=== PATIENT | female | born 2000 | race African-American/Black ===

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

== ENCOUNTER 2021-03-02 15:56 | Emergency (ER) | payer MEDICAID ==
[~2021-03-02] VITALS: Ht 157.5 cm; Wt 61.0 kg
[2021-03-02] MEDS ORDERED: IBUP-2029 MT (18:28)
[2021-03-02] MEDS ORDERED: ACET650T37 MT (18:28)
[2021-03-02] MEDS ORDERED: AMOX-494 MT (18:28)
[2021-03-02 18:46] VITALS: BP 112/49
== END 2021-03-02 18:49 | disposition home or self-care (01) ==
LOC: ER 15:56
DX: J02.9 Acute pharyngitis, unspecified (principal); F12.10 Cannabis abuse, uncomplicated
CPT/HCPCS: 87070; 87430; 99283

== ENCOUNTER 2023-09-16 23:34 | Emergency (ER) | payer MEDICAID ==
[~2023-09-16] VITALS: Ht 157.5 cm; Wt 57.0 kg
[~2023-09-16 23:34] MED LIST: ACET-3163 MT; AMOX-494 MT; IBUP-2029 MT
[2023-09-16 23:46] VITALS: O2SAT 99
[2023-09-17 00:51] LABS: EOSINOPHILS % 1.4 % (0.0-5.0); HEMATOCRIT. 37.4 % (36.0-48.0); HEMOGLOBIN. 12.4 g/dL (12.0-16.0); LYMPHOCYTES % 38.9 % (20.0-50.0); MEAN CORPUSCULAR HEMOGLOBIN 29.9 pg (28.0-32.0); MEAN CORPUSCULAR HGB CONC 33.3 g/dL (31.0-37.0); MEAN CORPUSCULAR VOLUME 89.7 fL (81.0-99.0); MEAN PLATELET VOLUME 7.8 fl (7.4-10.4); MONOCYTES % 10.1 % (2.0-8.0); NEUTROPHILS % 48.6 % (40.0-76.0); PLATELET 264 x1000/uL (130-400); RED BLOOD CELL COUNT 4.16 mill/uL (4.2-5.4); RED CELL DISTRIBUTION WIDTH 13.9 % (11.6-14.6); WHITE BLOOD COUNT 7.1 x1000/uL (4.5-11.0)
[2023-09-17 00:57] LABS: CHLORIDE 108 mEq/L (98-107); POTASSIUM 3.5 mEq/L (3.5-5.1); SODIUM 139 mEq/L (136-145)
[2023-09-17 00:58] LABS: CALCIUM 9.3 mg/dL (8.7-10.4); CARBON DIOXIDE 25 mEq/L (21-32)
[2023-09-17 01:03] LABS: CREATININE 0.8 mg/dL (0.6-1.0); GLUCOSE 102 mg/dL (70-105); UREA NITROGEN BLOOD 16 mg/dL (9-23)
[2023-09-17 01:05] LABS: ALANINE AMINOTRANSFERASE 12 IU/L (10-49); ALBUMIN 4.6 g/dL (3.2-4.8); ASPARTATE AMINOTRANSFERASE 17 IU/L (<34); BILIRUBIN TOTAL 0.2 mg/dL (0.1-1.0); PROTEIN TOTAL 7.1 g/dL (6.0-8.3)
[2023-09-17 01:25] LABS: BILIRUBIN DIRECT < 0.1 mg/dL (<=3.0)
[2023-09-17 01:30] LABS: HCG SCREEN NEGATIVE
[2023-09-17 01:37] LABS: INR 0.9; PROTHROMBIN TIME 10.1 sec (9.6-11.0)
[2023-09-17] MEDS ORDERED: ONDA4TAB50 MT (01:40)
[2023-09-17] MEDS ORDERED: ACET-2708 MT (01:40)
[2023-09-17 01:58] VITALS: BP 104/59; PULSE 68; RESP 18; TEMP 98.6
== END 2023-09-17 02:02 | disposition home or self-care (01) ==
LOC: ER 23:34
DX: K62.5 Hemorrhage of anus and rectum (principal); F12.10 Cannabis abuse, uncomplicated; Z79.899 Other long term (current) drug therapy
CPT/HCPCS: 36415; 99283; 80076; 80048; 84703; 83690; 85025; 85610; Z7610 ×6

== ENCOUNTER 2024-02-01 20:59 | Emergency (ER) | payer MEDICAID ==
[~2024-02-01] VITALS: Ht 160 cm; Wt 52.0 kg
[~2024-02-01 20:59] MED LIST changes: +ACET-2708 MT; +ONDA4TAB50 MT
[2024-02-01 21:07] VITALS: O2SAT 98
[2024-02-01 21:35] LABS: CLARITY URINE CLOUDY (CLEAR); COLOR URINE YELLOW (YELLOW); GLUCOSE URINE NEGATIVE (NEGATIVE); KETONES URINE TRACE (NEGATIVE); LEUKOCYTE ESTERASE URINE NEGATIVE (NEGATIVE); NITRITE URINE NEGATIVE (NEGATIVE); OCCULT BLOOD URINE 3+ (NEGATIVE); PH URINE 6.5 (4.5-8.0); PROTEIN URINE TRACE (NEGATIVE); SPECIFIC GRAVITY URINE 1.023 (1.005-1.030)
[2024-02-01 21:44] LABS: BACTERIA URINE 1+; SQUAMOUS EPITHELIAL CELL URINE 2+ /lpf (RARE/1+); WBC URINE 0-2 /hpf (0-2)
[2024-02-01 22:05] LABS: BASOPHILS % 0.7 % (0.0-2.0); EOSINOPHILS % 0.2 % (0.0-5.0); HEMATOCRIT. 38.2 % (36.0-48.0); HEMOGLOBIN. 12.8 g/dL (12.0-16.0); LYMPHOCYTES % 39.5 % (20.0-50.0); MEAN CORPUSCULAR HEMOGLOBIN 29.6 pg (28.0-32.0); MEAN CORPUSCULAR HGB CONC 33.5 g/dL (31.0-37.0); MEAN CORPUSCULAR VOLUME 88.4 fL (81.0-99.0); MEAN PLATELET VOLUME 7.4 fl (7.4-10.4); MONOCYTES % 13.7 % (2.0-8.0); NEUTROPHILS % 45.9 % (40.0-76.0); PLATELET 191 x1000/uL (130-400); RED BLOOD CELL COUNT 4.32 mill/uL (4.2-5.4); RED CELL DISTRIBUTION WIDTH 14.2 % (11.6-14.6); WHITE BLOOD COUNT 2.4 x1000/uL (4.5-11.0)
[2024-02-01 22:11] LABS: CARBON DIOXIDE 28 mEq/L (21-32); CHLORIDE 107 mEq/L (98-107); POTASSIUM 3.5 mEq/L (3.5-5.1); SODIUM 141 mEq/L (136-145)
[2024-02-01 22:12] LABS: CALCIUM 8.7 mg/dL (8.7-10.4)
[2024-02-01 22:17] LABS: CREATININE 0.7 mg/dL (0.6-1.0); GLUCOSE 94 mg/dL (70-105); UREA NITROGEN BLOOD 9 mg/dL (9-23)
[2024-02-01 22:18] LABS: ALANINE AMINOTRANSFERASE 13 IU/L (10-49); ALBUMIN 4.1 g/dL (3.2-4.8); ASPARTATE AMINOTRANSFERASE 25 IU/L (<34)
[2024-02-01 22:19] LABS: BILIRUBIN TOTAL 0.3 mg/dL (0.1-1.0); PROTEIN TOTAL 6.8 g/dL (6.0-8.3)
[2024-02-01 22:27] LABS: BILIRUBIN DIRECT < 0.1 mg/dL (<=3.0)
[2024-02-01] MEDS: KETOROLAC 30MG/ML VIAL IM ONE (22:30)
[2024-02-02 00:15] VITALS: BP 116/75; PULSE 18; RESP 16; TEMP 36.72516; O2SAT 100
== END 2024-02-02 00:15 | disposition home or self-care (01) ==
LOC: ER 21:51
DX: N93.9 Abnormal uterine and vaginal bleeding, unspecified (principal); R10.2 Pelvic and perineal pain; F12.10 Cannabis abuse, uncomplicated; Z79.899 Other long term (current) drug therapy
CPT/HCPCS: 36415; 74176; 76830; 76856; 80048; 80076; 81003; 81025; 85025; 86850; 86900; 99284